=== PATIENT | male | born 1990 | race Caucasian/White ===

== ENCOUNTER 2017-03-13 10:08 | Emergency (ER) | payer MEDICAID ==
[~2017-03-13] VITALS: Ht 182.9 cm; Wt 70.1 kg
[~2017-03-13 10:08] MED LIST: DICL75 PO; METH750T2 PO
[2017-03-13 10:24] VITALS: BP 143/87; PULSE 62; RESP 24; TEMP 98.1; O2SAT 100
[2017-03-13 10:25] VITALS: RESP 16; O2SAT 98
[2017-03-13] MEDS ORDERED: SODIUM CHLOR 0.9% 1000 ML INJ 1,000 ML IV SCH (10:32)
[2017-03-13] MEDS ORDERED: HYDROmorphone HCL PF 1 MG/ML VIAL IVS ONE (10:45)
[2017-03-13] MEDS: SODIUM CHLORIDE 0.9% FLUSH 10 ML FLUSH IV FLUSH PRN ×2 (10:45→12:26)
[2017-03-13] MEDS ORDERED: ONDANSETRON HCL 4 MG/2 ML VIAL IVP ONE (10:45)
[2017-03-13 11:07] LABS: AUTOMATED NEUTROPHIL # 13.9 TH/MM3 (1.8-7.7); BASOPHIL % 0.2 % (0.0-2.0); EOSINOPHIL # 0.1 TH/MM3 (0-0.4); EOSINOPHIL % 0.5 % (0.0-4.0); HEMATOCRIT 46.9 % (39.0-51.0); HEMO FLAGS DIFF FINAL; LYMPH % 13.4 % (9.0-44.0); LYMPHOCYTE # 2.3 TH/MM3 (1.0-4.8); MEAN CELL VOLUME 85.8 FL (80.0-100.0); MEAN CORPUSCULAR HEMOGLOBIN 28.4 PG (27.0-34.0); MEAN CORPUSCULAR HGB CONC 33.1 % (32.0-36.0); MONO % 4.4 % (0.0-8.0); NEUT % 81.5 % (16.0-70.0); PLATELET COUNT 305 TH/MM3 (150-450); RED BLOOD COUNT 5.47 MIL/MM3 (4.50-5.90); RED CELL DISTRIBUTION WIDTH 12.9 % (11.6-17.2)
[2017-03-13 11:08] LABS: CHLORIDE 107 MEQ/L (98-107); POTASSIUM 3.7 MEQ/L (3.5-5.1); SODIUM (NA) 139 MEQ/L (136-145)
[2017-03-13 11:12] LABS: ANION GAP 11 MEQ/L (5-15); BICARBONATE 21.5 MEQ/L (21.0-32.0); BLOOD UREA NITROGEN 19 MG/DL (7-18)
[2017-03-13 11:15] LABS: ALT (GPT) 25 U/L (12-78); AST (GOT) 14 U/L (15-37); GLOMERULAR FILTRATION RATE 90 ML/MIN (>89)
[2017-03-13 11:16] LABS: TOTAL BILIRUBIN ADULT 0.5 MG/DL (0.2-1.0)
[2017-03-13 11:18] LABS: ALKALINE PHOSPHATASE 71 U/L (45-117)
[2017-03-13] MEDS ORDERED: IOHEXOL 350 MG/ML 10 ML VIAL (for RAD DIAG) IVCONTRAST ONE (11:19)
--- NOTE | 2017-03-13 11:22 | PD ---
HPI Chief Complaint: Abdominal Pain Time Seen by Provider: 10:29 Travel History International Travel<30 days: No Contact w/Intl Traveler<30days: No Traveled to known affect area: No History of Present Illness HPI This is a 26-year-old male who presents to the emergency Department with onset of epigastric abdominal pain that started in the middle the night waking him up from sleep associated with multiple episodes of vomiting and some loose stools. His symptoms are constant, severe, and he denies any associated fevers or chills. He says his girlfriend has some similar symptoms. He says this happened to him once before and they told him they thought it was gastroenteritis or colitis. Patient smokes cigarettes. He denies any alcohol use but he does say he smokes marijuana daily. PFSH Past Medical History Asthma: Yes Diminished Hearing: No GERD: Yes (hyper emesis) Immunizations Current: No Tetanus Vaccination: < 5 Years Influenza Vaccination: No Past Surgical History Surgical History: No Previous Surgery Tonsillectomy: Yes Social History Alcohol Use: No Tobacco Use: Yes (1 PPD) Substance Use: Yes (smokes Pot per patient) Allergies-Medications (Allergen,Severity, Reaction): Coded Allergies: No Known Allergies (Verified , 03/13/17) Reported Meds & Prescriptions Reported Meds & Active Scripts Active No Active Prescriptions or Reported Medications Review of Systems Except as stated in HPI: all other systems reviewed are Neg Physical Exam Narrative GENERAL: Mildly retching, actively vomiting in the room SKIN: Diaphoretic HEAD: Atraumatic. Normocephalic. EYES: Pupils equal and round. No injection or drainage. ENT: Moist mucous membranes NECK: Trachea midline. CARDIOVASCULAR: Regular rate and rhythm. No murmur appreciated. RESPIRATORY: Clear to auscultation. Breath sounds equal bilaterally. GASTROINTESTINAL: Abdomen soft, tender to palpation in the epigastrium with no rebound or guarding. MUSCULOSKELETAL: No obvious deformities. NEUROLOGICAL: Awake and alert. No obvious cranial nerve deficits. Moving all extremities. PSYCHIATRIC: Appropriate mood and affect; insight and judgment normal. Data Data Last Documented VS Vital Signs Date Time Temp Pulse Resp B/P (MAP) Pulse Ox O2 Delivery O2 Flow Rate FiO2 03/13/17 12:30 70 16 130/71 (90) 99 Room Air 03/13/17 10:24 98.1 Orders Orders Complete Blood Count With Diff (03/13/17 10:32) Comprehensive Metabolic Panel (03/13/17 10:32) Lipase (03/13/17 10:32) Urinalysis - C+S If Indicated (03/13/17 10:32) Ct Abd/Pel W Iv Contrast(Rout) (03/13/17 10:32) Iv Access Insert/Monitor (03/13/17 10:32) Ecg Monitoring (03/13/17 10:32) Oximetry (03/13/17 10:32) Ondansetron Inj (Zofran Inj) (03/13/17 10:45) Sodium Chlor 0.9% 1000 Ml Inj (Ns 1000 M (03/13/17 10:32) Sodium Chloride 0.9% Flush (Ns Flush) (03/13/17 10:45) Hydromorphone Pf Inj (Dilaudid Pf Inj) (03/13/17 10:45) Iohexol 350 Inj (Omnipaque 350 Inj) (03/13/17 11:19) Hydromorphone Pf Inj (Dilaudid Pf Inj) (03/13/17 12:15) Labs Laboratory Tests Test 03/13/17 10:35 03/13/17 11:50 White Blood Count 17.0 TH/MM3 Red Blood Count 5.47 MIL/MM3 Hemoglobin 15.5 GM/DL Hematocrit 46.9 % Mean Corpuscular Volume 85.8 FL Mean Corpuscular Hemoglobin 28.4 PG Mean Corpuscular Hemoglobin Concent 33.1 % Red Cell Distribution Width 12.9 % Platelet Count 305 TH/MM3 Mean Platelet Volume 7.4 FL Neutrophils (%) (Auto) 81.5 % Lymphocytes (%) (Auto) 13.4 % Monocytes (%) (Auto) 4.4 % Eosinophils (%) (Auto) 0.5 % Basophils (%) (Auto) 0.2 % Neutrophils # (Auto) 13.9 TH/MM3 Lymphocytes # (Auto) 2.3 TH/MM3 Monocytes # (Auto) 0.7 TH/MM3 Eosinophils # (Auto) 0.1 TH/MM3 Basophils # (Auto) 0.0 TH/MM3 CBC Comment DIFF FINAL Differential Comment Blood Urea Nitrogen 19 MG/DL Creatinine 1.00 MG/DL Random Glucose 122 MG/DL Total Protein 7.5 GM/DL Albumin 4.3 GM/DL Calcium Level 9.3 MG/DL Alkaline Phosphatase 71 U/L Aspartate Amino Transf (AST/SGOT) 14 U/L Alanine Aminotransferase (ALT/SGPT) 25 U/L Total Bilirubin 0.5 MG/DL Sodium Level 139 MEQ/L Potassium Level 3.7 MEQ/L Chloride Level 107 MEQ/L Carbon Dioxide Level 21.5 MEQ/L Anion Gap 11 MEQ/L Estimat Glomerular Filtration Rate 90 ML/MIN Lipase 127 U/L Urine Collection Type CLEAN CATCH Urine Color YELLOW Urine Turbidity CLEAR Urine pH 7.5 Urine Specific Perry 1.015 Urine Protein TRACE mg/dL Urine Glucose (UA) NEG mg/dL Urine Ketones TRACE mg/dL Urine Occult Blood TRACE Urine Nitrite NEG Urine Bilirubin NEG Urine Leukocyte Esterase NEG Urine RBC 0-3 /hpf Urine Squamous Epithelial Cells 0-5 /hpf Microscopic Urinalysis Comment CULT NOT INDICATED Urine Collection Time 11:50 [facility] Medical Decision Making Medical Screen Exam Complete: Yes Emergency Medical Condition: Yes Interpretation(s) Afebrile, no tachycardia, hypertensive Leukocytosis Electrolytes are reassuring Lipase is normal Urinalysis is negative for infection CT abdomen and pelvis demonstrates small subcentimeter nonspecific right ileocolic lymph nodes Differential Diagnosis Gastroenteritis, gastritis, perforated peptic ulcer, pancreatitis, Crohn's disease, cannabis hyperemesis syndrome Narrative Course This is a 26-year-old male who presents to the emergency department with epigastric pain and violent retching that started abruptly overnight. He was placed on a monitor and an IV was established. Labs are obtained which demonstrate a leukocytosis which I suspect is a stress response. Otherwise his labs are reassuring. CT abdomen and pelvis demonstrates some nonspecific lymphadenopathy which I discussed with the patient. He says he smokes marijuana daily. He says this happens to him frequently and he does frequently try to take warm showers to alleviate his symptoms. I have a high suspicion that this is candidate as hyperemesis syndrome. I counseled him to discontinue marijuana use. I think patient can safely be discharged home. Diagnosis Primary Impression: Cannabinoid hyperemesis syndrome Patient Instructions: General Instructions Additional Instructions: If you develop severe or worsening abdominal pain, fever>100.4, persistent vomiting or inability to eat or drink return to the emergency department immediately. Follow up with your primary care physician in 1-2 days for a check-up. Med/Other Pt SpecificInfo: Prescription(s) given Scripts Tramadol (Tramadol) 50 Mg Tab 50 MG PO Q6H Y for PAIN, #8 TAB 0 Refills Prov: Lida Carolina MD 03/13/17 Ondansetron Odt (Zofran Odt) 4 Mg Tab 4 MG SL Q6HR Y for Nausea/Vomiting, #15 TAB 0 Refills Prov: Lida Carolina MD 03/13/17 Disposition: 01 DISCHARGE HOME Condition: Stable Lida Carolina MD Mar 13, 2017 11:22
[2017-03-13 11:30] VITALS: BP 119/76; PULSE 62; RESP 16; O2SAT 99
--- NOTE | 2017-03-13 11:52 | RADRPT ---
EXAM DATE/TIME: 03/13/2017 11:15 [facility] COMPARISON: No previous studies available for comparison. INDICATIONS : Mid to lower abdominal pain with nausea, vomiting and diarrhea since this morning. IV CONTRAST: 95 cc Omnipaque 350 (iohexol) IV ORAL CONTRAST: No oral contrast ingested. RADIATION DOSE: 7.10 CTDIvol (mGy) MEDICAL HISTORY : Gastroesophageal reflux disease. SURGICAL HISTORY : None. ENCOUNTER: Initial ACUITY: 1 day PAIN SCALE: 5/10 LOCATION: lower quadrant TECHNIQUE: Volumetric scanning of the abdomen and pelvis was performed. Using automated exposure control and ad justment of the mA and/or kV according to patient size, radiation dose was kept as low as reasonably achievable to obtain optimal diagnostic quality images. DICOM format image data is available electro nically for review and comparison. FINDINGS: LOWER LUNGS: The visualized lower lungs are clear. LIVER: Homogeneous density without lesion. There is no dilation of the biliary tree. No calcified gallston es. SPLEEN: Normal size without lesion. PANCREAS: Within normal limits. KIDNEYS: Normal in size and shape. There is no mass, stone or hydronephrosis. ADRENAL GLANDS: Within normal limits. VASCULAR: There is no aortic aneurysm. BOWEL/MESENTERY: Small subcentimeter nonspecific lymph nodes are identified in the mesentery especially in the right i leocolic region. The stomach, small bowel, and colon demonstrate no acute abnormality. There is no f ree intraperitoneal air or fluid. ABDOMINAL WALL: Within normal limits. RETROPERITONEUM: There is no lymphadenopathy. BLADDER: No wall thickening or mass. REPRODUCTIVE: Within normal limits. INGUINAL: There is no lymphadenopathy or hernia. MUSCULOSKELETAL: Within normal limits for patient age. CONCLUSION: 1. Small subcentimeter nonspecific right ileocolic lymph nodes. 2. Otherwise unremarkable study. Andrei Florez MD on March 13, 2017 at 11:42 Board Certified Radiologist. This report was verified electronically.
[2017-03-13 11:59] LABS: BLOOD, URINE TRACE (NEG); GLUCOSE,URINE NEG (NEG); KETONE, URINE TRACE mg/dL (NEG); NITRITE,URINE NEG (NEG); PH, URINE 7.5 (5.0-8.5)
[2017-03-13 12:06] LABS: METHOD OF COLLECTION CLEAN CATCH; URINE COLOR YELLOW (YELLW/STRAW)
[2017-03-13 12:07] LABS: COMMENT (UR) CULT NOT INDICATED; CULTURE IF INDICATED CULT NOT INDICATED; RBC, URINE 0-3 /hpf (0-3); SQUAMOUS EPITHELIAL CELL URINE 0-5 /hpf (0-5)
[2017-03-13] MEDS ORDERED: HYDROmorphone HCL PF 1 MG/ML VIAL IV PUSH ONE (12:15)
[2017-03-13 12:30] VITALS: BP 130/71; PULSE 70; RESP 16; O2SAT 99
[2017-03-13] MEDS ORDERED: ZOFR4TAB3 SL (12:34)
[2017-03-13] MEDS ORDERED: TRAM50TA PO (12:34)
[2017-03-13 12:57] VITALS: RESP 16
[2017-03-13 12:58] VITALS: BP 130/60
== END 2017-03-13 13:12 | disposition home or self-care (01) ==
LOC: PHED 10:08
DX: F12.188 Cannabis abuse with other cannabis-induced disorder (principal); R11.10 Vomiting, unspecified; R10.13 Epigastric pain; K21.9 Gastro-esophageal reflux disease without esophagitis; J45.909 Unspecified asthma, uncomplicated; F17.200 Nicotine dependence, unspecified, uncomplicated
CPT/HCPCS: 74177; 80053; 81001; 83690; 85025; 96361; 96374; 96375; 96376; 99285; J1170; J2405; J7030; Q9967